=== PATIENT | male | born 1945 | race Caucasian/White ===

== ENCOUNTER 2017-01-06 05:43 | Day surgery (SDC) | payer MEDICARE, OTHER ==
[2017-01-06] MEDS ORDERED: Dextrose 5%-Lactated Ringers 1,000 ML IV SCH (06:15)
[2017-01-06] MEDS ORDERED: Glycopyrrolate 0.2 MG/ML 2 ML SYRINGE IVPUSH ONE (07:30)
[2017-01-06] MEDS ORDERED: Midazolam 1 MG/ML 2 ML SDV ONE (07:45)
[2017-01-06] MEDS ORDERED: Propofol 200 MG/20 ML SDV ONE ×2 (07:45→08:23)
[2017-01-06] MEDS ORDERED: fentaNYL 100 MCG/2 ML SDV ONE (07:45)
[2017-01-06 09:37] VITALS: BP 125/64
--- NOTE | 2017-01-09 13:27 | OR ---
sDATE OF PROCEDURE: 01/06/2017 PREOPERATIVE DIAGNOSES: 1. Epigastric pain. 2. History of colon polyps. POSTOPERATIVE DIAGNOSES: 1. Mild antral gastritis. 2. Uncomplicated left colonic diverticulosis with no recurrent polyp disease. OPERATIVE PROCEDURE: 1. Esophagogastroduodenoscopy with antral biopsies for CLOtest. 2. Flexible colonoscopy. ANESTHESIA: IV sedation. INDICATION FOR PROCEDURE: This is a 71-year-old male presenting with some recent episodes of epigastric pain. This seemed to be exacerbated by some calcium medications he was taking and has improved somewhat. He is on Nexium 40 mg b.i.d. In addition, the patient has a history of colon polyps x2. A flexible colonoscopy with biopsies or polypectomy as indicated and additionally upper endoscopy. Potential risks including bleeding and perforation were discussed, and the patient wishes to proceed. DESCRIPTION OF PROCEDURE: The patient was taken to the operating room and placed in a left lateral decubitus position. IV sedation was administered, after which the upper GI endoscope was passed orally through the length of the esophagus and stomach with retroflexion view of the fundus, and thereafter through the pyloric channel, and into the proximal duodenum. Findings included normal hypopharynx, larynx, upper esophageal sphincter, and esophageal body. At the EG junction no significant inflammation was noted and minimal hiatal hernia was present. Within the stomach there was no significant redness area other than for some very mild redness in the antrum. No erosions or ulcers were seen in the pyloric channel and duodenum to the level of the third and fourth portions were unremarkable. At this point, biopsy was obtained from the antrum and sent for CLOtest test for H. pylori. Minimal bleeding from the biopsy site was seen and the scope was then removed. Attention was taken to the colonoscopy. Digital rectal exam was performed and was unremarkable. Colonoscope was then passed to the level of the cecum. The prep was fair. There was a moderate amount of liquid stool and some solid stool present, but the vast majority of the surfaces were well seen. Certainly no or polyps will be missed. There was some uncomplicated left colonic diverticulosis. Otherwise, there are no areas of polyps or signs of neoplasia and no colitis. The scope was then withdrawn. The above findings were reconfirmed, and the procedure was then concluded. Recommendation would be to repeat the upper endoscopy on p.r.n. basis as soon as the patient's health remain satisfactory for the next colonoscopy given the history of previous polyps should be in 5 years. Bandar Bartlett MD /[id number]
== END 2017-01-06 10:45 | disposition home or self-care (01) ==
LOC: JP.SDS 05:43
PROVIDERS: ATTEND Surgery
DX: Z12.11 Encounter for screening for malignant neoplasm of colon (principal); Z86.010 Personal history of colon polyps; K57.30 Diverticulosis of large intestine without perforation or abscess without bleeding; K29.50 Unspecified chronic gastritis without bleeding; K44.9 Diaphragmatic hernia without obstruction or gangrene; K21.9 Gastro-esophageal reflux disease without esophagitis; I12.9 Hypertensive chronic kidney disease with stage 1 through stage 4 chronic kidney disease, or unspecified chronic kidney disease; N18.9 Chronic kidney disease, unspecified
CPT/HCPCS: 43239; 87081; G0105; J2250; J2704; J3010; J7042

== ENCOUNTER 2020-01-27 05:30 | Day surgery (SDC) | payer MEDICARE, OTHER ==
[2020-01-27] MEDS ORDERED: Dextrose 5%-Lactated Ringers 1,000 ML IV SCH (06:30)
[2020-01-27] MEDS ORDERED: Propofol 200 MG/20 ML SDV ONE ×2 (06:56→07:39)
[2020-01-27] MEDS ORDERED: fentaNYL 100 MCG/2 ML SDV ONE (06:56)
[2020-01-27] MEDS ORDERED: Midazolam 1 MG/ML 2 ML SDV ONE (06:56)
[2020-01-27 09:27] VITALS: PULSE 62
[2020-01-27 09:28] VITALS: BP 139/75
[2020-01-27] MEDS ORDERED: Insulin Lispro 100 Unit/ML 3 ML KwikPen SUBCUT ONE (14:24)
--- NOTE | 2020-01-28 09:35 | OR ---
DATE OF PROCEDURE: 01/27/2020 SURGEON: Bandar Bartlett MD PREOPERATIVE DIAGNOSES: 1. History of gastric polyps. 2. History of colon polyps. POSTOPERATIVE DIAGNOSES: 1. 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 2. Colonoscopy showing polyps involving mid transverse colon, splenic flexure, and distal sigmoid colon. OPERATIVE PROCEDURE: 1. Esophagogastroduodenoscopy with: a. Biopsy of esophagogastric junction for histologic evaluation (46916). b. Polypectomy of larger of the gastric polyps (06599). 2. Flexible colonoscopy with: a. Biopsies with removal of small colon polyps in the transverse colon and splenic flexure (80842). b. Excision by snare technique of sigmoid colon polyp ([id number]). ANESTHESIA: IV sedation. INDICATION FOR PROCEDURE: This 74-year-old male presenting with longstanding gastroesophageal reflux disease and long-term use of proton pump inhibitors. He is known to have multiple gastric polyps in the past and is presenting for followup upper GI endoscopy, for surveillance of issues such as Miller's esophagus or any neoplastic changes as well as evaluation of the gastric polyps. He also has history of colon polyps and is undergoing colonoscopy. Plan is to proceed with upper and lower GI endoscopy with biopsies and/or polypectomies as indicated. Potential risks including bleeding and perforation were discussed, and the patient wishes to proceed. DETAILS OF PROCEDURE: The patient was taken to the operating room and IV sedation administered, and was placed in left lateral decubitus position. The upper GI endoscope was passed orally through the length of the esophagus and stomach, with retroflexion view of the fundus, thereafter through the pyloric channel into the proximal duodenum. Findings included normal hypopharynx, larynx, upper esophageal sphincter, esophageal body. The patient did have roughly 3 to 4 cm hiatal hernia with a quite wide open esophagogastric junction. There was some upward extension of the gastroesophageal junction mucosal line as well as some slight friable type tissue in that area. While the patient had multiple gastric polyps, largest of these was subsequently selected for excision and none of remaining polyps appeared to be worrisome grossly. Remainder of the gastric and duodenal exam was unremarkable. At this point, multiple biopsies obtained from the area of esophagogastric junction and sent for histologic evaluation. The polyp as mentioned above was encircled at its base and removed by means of cautery snare technique. This was placed in a specimen bag and along with the scope was then removed and sent for histologic evaluation. Attention was then taken to the colonoscopy. Initial digital exam was performed and was unremarkable. Colonoscope was passed into the rectum with retroflexion revealing uncomplicated hemorrhoidal columns. Scope was eventually passed to the level of the cecum. The prep was fairly good. There was some liquid stool present which may obscure small areas of polyp formation. The patient had uncomplicated left colonic diverticulosis. Three polyps were identified, 1 in the mid transverse colon, 1 in the splenic flexure, these were both small and were excised and removed in each case with 2 bites with the biopsy forceps and were sent for histologic evaluation. The slightly larger polyp measuring 8 mm was located in the distal sigmoid colon. This was at a point just where the last of the diverticula were present, which we confirmed this to be in the distal sigmoid colon. This was removed with a snare along the base and then cauterized and then sent for histologic evaluation. It did fragment somewhat upon its removal, but the entire polyp appeared to be removed. Good hemostasis was confirmed. The procedure was then concluded. There were no evident complications. We will contact the patient regarding the histologic findings and at that point decide the appropriate followup, and the timing for upper and lower endoscopies. Bandar Bartlett MD /[id number]
== END 2020-01-27 09:28 | disposition home or self-care (01) ==
LOC: JP.SDS 05:30
PROVIDERS: ATTEND Surgery
DX: Z12.11 Encounter for screening for malignant neoplasm of colon (principal); D12.3 Benign neoplasm of transverse colon; K31.7 Polyp of stomach and duodenum; K29.50 Unspecified chronic gastritis without bleeding; K21.0 Gastro-esophageal reflux disease with esophagitis; I12.9 Hypertensive chronic kidney disease with stage 1 through stage 4 chronic kidney disease, or unspecified chronic kidney disease; E11.22 Type 2 diabetes mellitus with diabetic chronic kidney disease; N18.2 Chronic kidney disease, stage 2 (mild); K44.9 Diaphragmatic hernia without obstruction or gangrene; K57.30 Diverticulosis of large intestine without perforation or abscess without bleeding; Z86.010 Personal history of colon polyps; Z98.890 Other specified postprocedural states
CPT/HCPCS: 43239; 43251; 45380; 45385; 88305; J2250; J2704; J3010; J7121

== ENCOUNTER 2022-01-27 06:26 | Day surgery (SDC) | payer MEDICARE, OTHER ==
[2022-01-27] MEDS ORDERED: Propofol 200 MG/20 ML SDV ONE ×4 (06:56→09:32)
[2022-01-27] MEDS ORDERED: Midazolam 1 MG/ML 2 ML SDV ONE (06:56)
[2022-01-27] MEDS ORDERED: fentaNYL 100 MCG/2 ML SDV ONE (06:56)
[2022-01-27] MEDS ORDERED: Dextrose 5%-Lactated Ringers 1,000 ML IV SCH (07:15)
[2022-01-27] MEDS ORDERED: Lactated Ringers 1,000 ML ONE (08:38)
[2022-01-27 10:36] VITALS: BP 129/63; PULSE 59
== END 2022-01-27 10:36 | disposition home or self-care (01) ==
LOC: JP.SDS 06:26
PROVIDERS: ATTEND Family Medicine
DX: Z12.11 Encounter for screening for malignant neoplasm of colon (principal); D12.3 Benign neoplasm of transverse colon; K62.1 Rectal polyp; D12.4 Benign neoplasm of descending colon; K31.7 Polyp of stomach and duodenum; I12.9 Hypertensive chronic kidney disease with stage 1 through stage 4 chronic kidney disease, or unspecified chronic kidney disease; E11.22 Type 2 diabetes mellitus with diabetic chronic kidney disease; N18.9 Chronic kidney disease, unspecified; Z98.890 Other specified postprocedural states; Z87.891 Personal history of nicotine dependence; K21.9 Gastro-esophageal reflux disease without esophagitis
CPT/HCPCS: 43239; 45380; J2250; J2704; J3010; J7120; 88305

== ENCOUNTER 2025-01-27 06:45 | Day surgery (SDC) | payer MEDICARE, OTHER ==
[2025-01-27] MEDS ORDERED: Propofol 200 MG/20 ML SDV ONE ×2 (07:08→08:30)
[2025-01-27] MEDS ORDERED: fentaNYL 50 MCG/ML SDV ONE (07:08)
[2025-01-27] MEDS ORDERED: Lidocaine 1% 2 ML ONE (07:53)
[2025-01-27] MEDS: Lactated Ringers 1,000 ML IV SCH (08:00)
[2025-01-27 09:44] VITALS: BP 151/81; PULSE 68
== END 2025-01-27 10:07 | disposition home or self-care (01) ==
LOC: JP.SDS 06:45
PROVIDERS: ATTEND Family Medicine
DX: Z12.11 Encounter for screening for malignant neoplasm of colon (principal); K29.50 Unspecified chronic gastritis without bleeding; K31.89 Other diseases of stomach and duodenum; D13.1 Benign neoplasm of stomach; D12.0 Benign neoplasm of cecum; D12.2 Benign neoplasm of ascending colon; D12.3 Benign neoplasm of transverse colon; K62.1 Rectal polyp; K21.9 Gastro-esophageal reflux disease without esophagitis; K64.8 Other hemorrhoids; K57.30 Diverticulosis of large intestine without perforation or abscess without bleeding; I10 Essential (primary) hypertension; E11.9 Type 2 diabetes mellitus without complications; Z86.0101 Personal history of adenomatous and serrated colon polyps
CPT/HCPCS: 00813; 43239; 45380; 45385; 88305; 88341; 88342; J2003; J2704; J3010; J7120